=== PATIENT | male | born 1945 | race Caucasian/White ===

== ENCOUNTER 2017-06-08 14:57 | Emergency (ER) | payer SELFPAY ==
[~2017-06-08] VITALS: Ht 167.6 cm; Wt 65.9 kg
[2017-06-08 15:12] VITALS: BP 166/100
[2017-06-08 16:02] LABS: GLUCOSE,POINT OF CARE 137 MG/DL (70-110)
== END 2017-06-08 16:15 | disposition left against medical advice (07) ==
LOC: EMS 14:58
DX: E16.2 Hypoglycemia, unspecified (principal); Z53.21 Procedure and treatment not carried out due to patient leaving prior to being seen by health care provider
CPT/HCPCS: 82962